=== PATIENT | female | born 1980 | race African-American/Black ===

== ENCOUNTER 2016-08-19 06:00 | Emergency (ER) | payer OTHER ==
[2016-08-19] MEDS ORDERED: NEOMY SULF/POLYMYX B SULF/HC OTIC SUSP 10 ML AS ONE (06:45)
[2016-08-19] MEDS ORDERED: NEOMY SULF/POLYMYX B SULF/HC OTIC SUSP 10 ML AS SCH (06:45)
--- NOTE | 2016-08-19 06:46 | ER Document Report ---
ED General - General Chief Complaint: Ear Pain Stated Complaint: EAR PAIN Time Seen by Provider: 08/19/16 06:35 TRAVEL OUTSIDE OF THE [place] IN LAST 30 DAYS: No - HPI Patient complains to provider of: Left ear pain Notes: Patient is approximate 16 weeks coming in for left ear pain. Patient denies any recent swimming states that she has been placing peroxide and both her ears. Patient states decreased hearing on left side. Patient denies any fevers chills nausea vomiting diarrhea denies any recent travel denies any recent swimming denies any recent diving or air travel. - Related Data Allergies/Adverse Reactions: acetaminophen [From Percocet] Allergy (Verified 08/19/16 06:39) oxycodone [From Percocet] Allergy (Verified 08/19/16 06:39) Home Medications: Current Home Medications Pnv Combo#47/Iron/FA #1/Dha [Virt-Pn Dha Softgel] 1 cap PO DAILY 08/19/16 [ History] Past Medical History - Social History Smoking Status: Unknown if Ever Smoked Family History: Reviewed & Not Pertinent Patient has suicidal ideation: No Patient has homicidal ideation: No Renal/ Medical History: Denies: Hx Peritoneal Dialysis Past Surgical History: Reports: Hx Section Review of Systems - Review of Systems Constitutional: No symptoms reported EENT: Other - Ear pain decreased hearing left side Cardiovascular: No symptoms reported Respiratory: No symptoms reported Gastrointestinal: No symptoms reported Genitourinary: No symptoms reported Female Genitourinary: No symptoms reported Musculoskeletal: No symptoms reported Skin: No symptoms reported Hematologic/Lymphatic: No symptoms reported Neurological/Psychological: No symptoms reported Physical Exam - Vital signs Vitals: Temp Pulse Resp BP Pulse Ox 98.4 F 99 18 141/61 H 99 08/19/16 06:05 08/19/16 06:05 08/19/16 06:05 08/19/16 06:05 08/19/16 06:05 Interpretation: Normal - General General appearance: Appears well, Alert - HEENT Head: Normocephalic, Atraumatic Eyes: Normal Conjunctiva: Normal Cornea: Normal Pupils: PERRL Ears: Normal External canal: Cerumen impaction - Bilateral with erythema and drainage in the left ear canal consistent with otitis externa - Respiratory Respiratory status: No respiratory distress Chest status: Nontender Breath sounds: Normal Chest palpation: Normal - Cardiovascular Rhythm: Regular Heart sounds: Normal auscultation Murmur: No - Abdominal Inspection: Normal Distension: No distension Bowel sounds: Normal Tenderness: Nontender Organomegaly: No organomegaly - Back Back: Normal, Nontender - Extremities General upper extremity: Normal inspection, Nontender, Normal color, Normal ROM , Normal temperature General lower extremity: Normal inspection, Nontender, Normal color, Normal ROM , Normal temperature, Normal weight bearing. No: Jonna's sign - Neurological Neuro grossly intact: Yes Cognition: Normal Orientation: AAOx4 [place] Coma Scale Eye Opening: Spontaneous Brian Coma Scale Verbal: Oriented Brian Coma Scale Motor: Obeys Commands [place] Coma Scale Total: 15 Speech: Normal Motor strength normal: LUE, RUE, LLE, RLE Sensory: Normal - Psychological Associated symptoms: Normal affect, Normal mood - Skin Skin Temperature: Warm Skin Moisture: Dry Skin Color: Normal Course - Re-evaluation Re-evalutation: 08/19/16 14:27 Patient coming in for bilateral cerumen impaction and left otitis externa patient had a Colace instilled in both ear canals and was educated on irrigation at home. Educated patient about use [id number] Debrox. Patient will be given Cortisporin drops for her ears patient will be discharged home. - Vital Signs Vital signs: Temp Pulse Resp BP Pulse Ox 99.0 F 90 18 114/52 L 99 08/19/16 08:27 08/19/16 08:27 08/19/16 06:05 08/19/16 08:27 08/19/16 08:27 Discharge - Discharge Clinical Impression: Left otitis externa Qualifiers: Otitis externa type: unspecified type Chronicity: acute Qualified Code(s): H60.502 - Unspecified acute noninfective otitis externa, left ear Cerumen impaction Qualifiers: Laterality: bilateral Qualified Code(s): H61.23 - Impacted cerumen, bilateral Condition: Good Disposition: HOME, SELF-CARE Instructions: Use of Ear Drops ([facility]), Otitis Externa ([facility]), Cerumen Impaction ( [facility]) Additional Instructions: Please use the eardrops as indicated. The Cortisporin drops should be 4 times a day for the next 10 days. The Debrox drops to be twice a day for the next 5 days. Cortisporin drops or antibiotic drops with steroids that will help with your ear pain he may also take Tylenol for your ear pain. The left ear does look to have a slight external infection or swimmer's ear. Both of her ear canals are impacted with wax. The D Debrox solution will help remove the wax also gentle irrigation daily will also help remove the wax to as well. Please do not use the eardrops together as that they will delete each other and not be as effective give a few hours in between instilling each of the eardrops Prescriptions: Carbamide Peroxide [Debrox 6.5 % Otic Drops 15 ml] 10 drop OS BID #1 bottle Referrals: CARLOS JESUS MD [Primary Care Provider] - Follow up as needed
[2016-08-19] MEDS ORDERED: DOCUSATE SODIUM 100 MG CAPSULE BTH_EAR ONE (06:50)
[2016-08-19 08:29] VITALS: BP 114/52
[2016-08-19] MEDS ORDERED: CARBAMIDE PEROXIDE 6.5% OTIC SOLN 15 ML AS SCH (10:00)
== END 2016-08-19 08:29 | disposition home or self-care (01) ==
LOC: ER 06:00
DX: O26.92 Pregnancy related conditions, unspecified, second trimester (principal); H60.502 Unspecified acute noninfective otitis externa, left ear; H61.23 Impacted cerumen, bilateral; H92.02 Otalgia, left ear; Z3A.16 16 weeks gestation of pregnancy; Z88.6 Allergy status to analgesic agent
CPT/HCPCS: 99282; J3490 ×2